=== PATIENT | male | born 1990 | race Caucasian/White ===

== ENCOUNTER 2021-11-22 12:33 | Emergency (ER) | payer SELFPAY ==
[~2021-11-22] VITALS: Ht 172.7 cm; Wt 104.4 kg
--- NOTE | 2021-11-22 12:42 | NUR ---
[id number] FOR RIGHT EYEBORW LAC S/P BENDING FORWARD AND HITTING FOREHEAD ON THE GROUND. MIN BLEEDING NOTED. DENIES KO. RESPIRATION REGULAR AND UNLABORED. WILL CONTINUE TO MONITOR THE PATIENT.
[2021-11-22] MEDS ORDERED: TDAP [DIPH/PERTUSSIS/TET] 0.5 ML VIAL IM ONE ×3 (13:30→14:17)
--- NOTE | 2021-11-22 14:00 | NUR ---
SEEN BY ROLANDA HERNANDES. DERMABOND APPLIED TO LACERATED WOUND
--- NOTE | 2021-11-22 14:22 | NUR ---
Patient discharged to home in stable condition. Written and verbal after care instructions given. Patient verbalizes understanding of instruction.
[2021-11-22 14:29] VITALS: BP 112/74
== END 2021-11-22 14:30 | disposition home or self-care (01) ==
LOC: ER 12:51
DX: S01.81XA Laceration without foreign body of other part of head, initial encounter (principal); W22.8XXA Striking against or struck by other objects, initial encounter; Y93.89 Activity, other specified; Y92.89 Other specified places as the place of occurrence of the external cause; Y99.8 Other external cause status
CPT/HCPCS: 12011; 90471; 90715; 99283; A6403

== ENCOUNTER 2021-12-03 12:45 | Emergency (ER) | payer SELFPAY ==
[~2021-12-03] VITALS: Ht 177.8 cm; Wt 95.3 kg
--- NOTE | 2021-12-03 13:00 | NUR ---
BIB SELF C/O ON AND OFF HEADACHE 01/06 X 2 WEEKS "STARTED AFTER I HIT MY HEAD AT WORK 2 WEEKS AGO". IN ROOM AIR AND DENIES SOB. RESPIRATION REGULAR AND UNLABORED. WILL CONTINUE TO MONITOR THE PATIENT.
--- NOTE | 2021-12-03 13:52 | NUR ---
Patient discharged to home in stable condition. Written and verbal after care instructions given. Patient verbalizes understanding of instruction.
[2021-12-03 13:53] VITALS: BP 143/80
== END 2021-12-03 13:56 | disposition home or self-care (01) ==
LOC: ER 12:49
DX: S09.90XA Unspecified injury of head, initial encounter (principal); Z60.2 Problems related to living alone; W22.8XXA Striking against or struck by other objects, initial encounter; Y93.89 Activity, other specified; Y92.89 Other specified places as the place of occurrence of the external cause; Y99.8 Other external cause status
CPT/HCPCS: 70450-TC